=== PATIENT | male | born 1945 | race Caucasian/White ===

== ENCOUNTER 2017-08-21 16:40 | Emergency (ER) | payer MEDICARE ==
[~2017-08-21] VITALS: Ht 180.3 cm; Wt 102.0 kg
[~2017-08-21 16:40] MED LIST: CEPH500 PO; CORE3.12 OR; METF500 PO; NEXI40CA PO; PLAV75TA PO; ST JTAB OR; TAMS0.4C67 PO
[2017-08-21 16:45] VITALS: BP 155/78; PULSE 87; RESP 16; TEMP 98.2; O2SAT 96
[2017-08-21] MEDS ORDERED: BP MEDS (17:03)
[2017-08-21] MEDS ORDERED: METF1000 PO (17:03)
[2017-08-21] MEDS ORDERED: NEXI20CA PO (17:03)
--- NOTE | 2017-08-21 17:11 | PD ---
HPI Chief Complaint: ENT Complaint Time Seen by Provider: 17:01 Travel History International Travel<30 days: No Contact w/Intl Traveler<30days: No Traveled to known affect area: No History of Present Illness HPI 72 year old male presents to the emergency department for evaluation of right ear pain. Patient states the pain started after he scratched his ear. He then alcohol in the ear on a Q-tip which made the pain worse. Patient went to the [place] was started on Cortisporin ear drops. However, he reports no improvement and drainage or pain. Patient denies any other complaints. No fevers or chills pain no cough or congestion. Moderate severity. No exacerbating or alleviating factors. Patient states rate pain radiates up to head. PFSH Past Medical History Hx Anticoagulant Therapy: Yes (Plavix ) Arthritis: Yes Depression: Yes Cancer: No Cardiac Catheterization: Yes (STENT PLACEMENT) Cardiovascular Problems: Yes (STENT 1998) High Cholesterol: Yes COPD: Yes Diabetes: Yes (Metformin) Patient Takes Glucophage: Yes Endocrine: Yes GERD: Yes Hepatitis: No Hiatal Hernia: Yes Hypertension: Yes Immune Disorder: No Musculoskeletal: Yes (ARTHRIIS) Neurologic: No Psychiatric: Yes (DEPRESSION) Reproductive: No Respiratory: Yes (COPD) Thyroid Disease: No Influenza Vaccination: Yes Past Surgical History Abdominal Surgery: No AICD: No Body Medical Devices: NONE Cardiac Surgery: No Coronary Stent: Yes Ear Surgery: No Endocrine Surgery: No Eye Surgery: Yes (BILATERAL LOWER BLEPHROPLASTY, RIGHT CATARACT, SURGERY LEFT EYE) Genitourinary Surgery: Yes (GREEN LIGHT LASER FOR ENLARGED PROSTATE) Joint Replacement: No Oral Surgery: No Pacemaker: No Thoracic Surgery: No Other Surgery: Yes Social History Alcohol Use: Yes (couple days a week) Tobacco Use: No (QUIT 01/2016) Substance Use: No Allergies-Medications (Allergen,Severity, Reaction): Coded Allergies: No Known Allergies (Unverified Adverse Reaction, Unknown, 08/21/17) Reported Meds & Prescriptions Reported Meds & Active Scripts Active Reported [Bp Meds] Nexium (Esomeprazole DR) 20 Mg Capdr 20 Mg PO DAILY Metformin (Metformin HCl) 1,000 Mg Tab 1,000 Mg PO BIDPC Review of Systems Except as stated in HPI: all other systems reviewed are Neg Physical Exam Narrative GENERAL: Well-nourished, well-developed male patient, afebrile. SKIN: Focused skin assessment warm/dry. HEAD: Normocephalic. Atraumatic ENT: Mucosa pink and moist. No erythema or exudates. No uvular edema. No uvular , palatal, or tonsillar deviation. Airway patent. Nasal turbinates appear normal without nasal blood, purulent drainage or septal hematoma. Right ear canal is slightly swollen with drainage noted. I am unable to visualize the entire tympanic membrane. Left ear canal and tympanic membranes are normal. No mastoid tenderness to palpation. EYES: No scleral icterus. No injection or drainage. NECK: Supple, trachea midline. No JVD or lymphadenopathy. CARDIOVASCULAR: Regular rate and rhythm without murmurs, gallops, or rubs. RESPIRATORY: Breath sounds equal bilaterally. No accessory muscle use. Lungs sounds are clear to auscultation. GASTROINTESTINAL: Abdomen soft, non-tender, nondistended. MUSCULOSKELETAL: No cyanosis, or edema. BACK: Nontender without obvious deformity. No CVA tenderness. Data Data Last Documented VS Vital Signs Date Time Temp Pulse Resp B/P (MAP) Pulse Ox O2 Delivery O2 Flow Rate FiO2 08/21/17 16:45 98.2 87 16 155/78 (103) 96 Orders Orders Amoxicil-Clavulanate (Augmentin) (08/21/17 17:15) MDM Medical Decision Making Medical Screen Exam Complete: Yes Emergency Medical Condition: Yes Medical Record Reviewed: Yes Differential Diagnosis Otitis media versus otitis externa versus eustachian tube dysfunction Narrative Course 72-year-old male presents to the emergency department for evaluation of right ear pain. His exam is consistent with otitis externa. I am unable to visualize the entire tympanic membrane. Therefore, he'll also be treated for otitis media. Patient will be started on Ciprodex ear drops and Augmentin. He is instructed to stop using his current ear drops and start the Ciprodex. He is to follow up with his primary care physician. Return here for any acute worsening of symptoms. The patient was discharged in stable condition with instructions, including return instructions and follow up instructions. Diagnosis Primary Impression: Otitis externa Qualified Codes: H60.501 - Unspecified acute noninfective otitis externa, right ear Referrals: Primary Care Physician call for appointment Patient Instructions: General Instructions, Otitis Externa (ED) Additional Instructions: Stop current ear drops and start Ciprodex ear as directed. Take antibiotic as directed until gone. Follow-up with your primary care physician. Return to the emergency department for any acute worsening of symptoms. Med/Other Pt SpecificInfo: Prescription(s) given Scripts Ciprofloxacin-Dexamethasone Otic Drops (Ciprodex Otic Drops) 0.3-0.1% Susp 4 DROP RIGHT EAR BID for Infection, #1 BOTTLE 0 Refills Prov: Aurora Mathews 08/21/17 Amoxicillin-Clavulanate (Augmentin) 875-125 Mg Tab 1 TAB PO BID for Infection for 10 Days, #20 TAB 0 Refills Prov: Aurora Mathews 08/21/17 Disposition: 01 DISCHARGE HOME Condition: Stable Aurora Mathews Aug 21, 2017 17:11
[2017-08-21] MEDS ORDERED: AUGM875T3 PO (17:13)
[2017-08-21] MEDS ORDERED: CIPR0.3S RIGHT EAR (17:13)
[2017-08-21] MEDS ORDERED: AMOXICILLIN/CLAVULANATE K 875 MG TAB PO ONE (17:15)
== END 2017-08-21 17:21 | disposition home or self-care (01) ==
LOC: PHEFT 16:40
DX: H60.91 Unspecified otitis externa, right ear (principal); F32.9 Major depressive disorder, single episode, unspecified; E78.00 Pure hypercholesterolemia, unspecified; K21.9 Gastro-esophageal reflux disease without esophagitis; E11.9 Type 2 diabetes mellitus without complications; I10 Essential (primary) hypertension; J44.9 Chronic obstructive pulmonary disease, unspecified; Z95.5 Presence of coronary angioplasty implant and graft; Z79.01 Long term (current) use of anticoagulants; Z79.84 Long term (current) use of oral hypoglycemic drugs; Z87.891 Personal history of nicotine dependence
CPT/HCPCS: 99283